=== PATIENT | female | born 1975 | race Caucasian/White ===

== ENCOUNTER 2017-01-13 09:55 | Emergency (ER) | payer OTHER ==
[~2017-01-13] VITALS: Wt 87.0 kg
[~2017-01-13 09:55] MED LIST: CIPR500T4 PO; ELEC100080 PO
[2017-01-13] MEDS ORDERED: TRAM50TA2 PO (10:15)
--- NOTE | 2017-01-13 11:27 | ERD ---
ER Documentation Chief Complaint Date/Time DATE: 01/13/17 TIME: 11:26 Chief Complaint LEFT FOOT PAIN X 5 DAYS HPI 41-year-old female comes in with left-sided plantar foot pain for the past 5 days. Patient states it is diffuse, and more localized to the medial aspect and is worse with weightbearing. She states that she works all day on her feet , and she has not had any trauma. No fevers or chills or paresthesias. ROS All systems reviewed and are negative except as per history of present illness. Medications Home Meds Active Scripts Tramadol HCl (Tramadol HCl) 50 Mg Tablet, 50 MG PO Q4 Y for PAIN, #20 TAB Prov:JUANJO WILKINS PA-C 01/13/17 Electrolyte,Oral (Pedialyte) 1,000 Ml Solution, 100 ML PO Q6 Y for dehydration for 7 Days, ML Prov:KWESI GARCIA 02/26/15 Ciprofloxacin Hcl* (Ciprofloxacin Hcl*) 500 Mg Tablet, 500 MG PO BID for 7 Days , TAB Prov:KWESI GARCIA 02/26/15 Allergies Allergies: Coded Allergies: No Known Allergy (Unverified , 02/26/15) PMhx/Soc History of Surgery: Yes () Anesthesia Reaction: No Hx Neurological Disorder: No Hx Respiratory Disorders: No Hx Cardiac Disorders: No Hx Psychiatric Problems: No Hx Miscellaneous Medical Probl: No Hx Alcohol Use: No Hx Substance Use: No Hx Tobacco Use: No Physical Exam Vitals Vital Signs Date Time Temp Pulse Resp B/P Pulse Ox O2 Delivery O2 Flow Rate FiO2 01/13/17 10:00 98.0 71 18 126/71 99 Physical Exam General: Well-developed, well-nourished. The patient appears in no acute distress. HEENT: Head is normocephalic, atraumatic. No scleral icterus. Neck: Supple. Nontender. Lungs: Clear to auscultation. Normal air movement. Heart: Regular rate and rhythm. S1 and S2 are normal. No murmurs, gallops, or rubs. Abdomen: Nondistended. Extremities: Diffuse left medial foot pain at the plantar aspect, there are no bony deformities, erythema or warmth or swelling. There is no foot drop. Neurologic: Alert and oriented 3. No focal deficits. Normal speech and gait. Skin: Normal turgor. No rash or lesions. Procedures/MDM 41-year-old female comes in with left-sided foot pain, her examination is consistent with plantar fasciitis. She does not have any evidence of swelling, signs of infection, DVT. Foot does not have any signs of trauma, do not feel that the patient needs further radiographic imaging. She will be given a short course of tramadol, was asked to rest and ice the area. Departure Diagnosis: Primary Impression: Plantar fasciitis of left foot Condition: Good Patient Instructions: Plantar Fasciitis Additional Instructions: Llame al doctor TISH y jorgito raúl CHAITANYA PARA DENTRO DE 1-2 [place].Dgale a la secretaria que nosotros le instruimos hacer esta chaitanya.Avise o llame si ohara condicin se empeora antes de la chaitanya. Regresa aqui si peor o no mejor. JUANJO WILKINS PA-C January 13, 2017 11:27
== END 2017-01-13 10:37 | disposition home or self-care (01) ==
LOC: FTE 09:55
DX: M72.2 Plantar fascial fibromatosis (principal)
CPT/HCPCS: 99283